=== PATIENT | male | born 1990 | race Two or more races ===

== ENCOUNTER 2021-12-31 15:20 | Emergency (ER) | payer MEDICAID, OTHER ==
[2021-12-31 16:40] VITALS: BP 143/78
== END 2021-12-31 16:41 | disposition home or self-care (01) ==
LOC: ER 15:20
DX: Z13.9 Encounter for screening, unspecified (principal); R07.89 Other chest pain; J45.909 Unspecified asthma, uncomplicated; F17.210 Nicotine dependence, cigarettes, uncomplicated
CPT/HCPCS: 71046